=== PATIENT | female | born 1990 | race African-American/Black ===

== ENCOUNTER 2021-03-11 18:38 | Emergency (ER) | payer SELFPAY ==
[2021-03-11] MEDS ORDERED: Acetaminophen 500 MG TAB ONE (19:18)
[2021-03-11] MEDS ORDERED: Ketorolac Tromethamine 30 MG/ML VIAL ONE (19:18)
[2021-03-11 19:40] LABS: BHCG - Serum Negative (NEGATIVE); Pregs Control Background? CLEAR/WHITE (CLR/WHITE); Pregs Control Bar Appear? YES (CONTROL BAR)
[2021-03-12 21:54] LABS: SARS-CoV-2 PCR by NAA Not Detected (NotDetected)
== END 2021-03-11 20:12 | disposition home or self-care (01) ==
LOC: CSHERS 18:38
DX: R51.9 Headache, unspecified (principal); M79.10 Myalgia, unspecified site; I10 Essential (primary) hypertension; Z20.822 Contact with and (suspected) exposure to COVID-19; F17.200 Nicotine dependence, unspecified, uncomplicated
CPT/HCPCS: 36415; 84703; 96372; 99284; J1885; U0003; U0005

== ENCOUNTER 2022-03-13 11:55 | Emergency (ER) | payer SELFPAY ==
[2022-03-13] MEDS ORDERED: Ketorolac Tromethamine 30 MG/ML VIAL ONE (12:06)
== END 2022-03-13 12:16 | disposition home or self-care (01) ==
LOC: CSHERS 11:55
DX: K02.9 Dental caries, unspecified (principal); Z87.891 Personal history of nicotine dependence
CPT/HCPCS: 96372; 99283; J1885

== ENCOUNTER 2022-04-15 10:49 | Emergency (ER) | payer SELFPAY | END 2022-04-15 11:12 | disposition left against medical advice (07) | LOC: CSHERS 10:49 | DX: Z53.21 Procedure and treatment not carried out due to patient leaving prior to being seen by health care provider (principal) ==

== ENCOUNTER 2022-10-26 15:04 | Emergency (ER) | payer SELFPAY | END 2022-10-26 16:10 | disposition home or self-care (01) | LOC: CSHERS 15:04 | DX: S90.412A Abrasion, left great toe, initial encounter (principal); F17.210 Nicotine dependence, cigarettes, uncomplicated; I10 Essential (primary) hypertension; W26.9XXA Contact with unspecified sharp object(s), initial encounter ==

== ENCOUNTER 2023-09-17 10:28 | Emergency (ER) | payer SELFPAY ==
[2023-09-17] MEDS ORDERED: Prochlorperazine 10 MG/2 ML VIAL ONE (11:04)
[2023-09-17] MEDS ORDERED: diphenhydrAMINE 50 MG/ML VIAL ONE (11:04)
[2023-09-17] MEDS ORDERED: Acetaminophen 500 MG TAB ONE (11:05)
[2023-09-17 11:31] LABS: BHCG - Serum Negative (NEGATIVE); Pregs Control Background? CLEAR/WHITE (CLR/WHITE); Pregs Control Bar Appear? YES (CONTROL BAR)
[2023-09-17 11:36] LABS: ALT (SGPT) 11 U/L (8-55); AST (SGOT) 19 U/L (5-34); Albumin 3.9 g/dL (3.5-5.0); Alkaline Phosphatase 79 U/L (40-110); Anion Gap 13 mmol/L (10-20); BUN (Urea Nitrogen) 11 mg/dL (7.0-18.7); Bilirubin, Total 0.3 mg/dL (0.2-1.2); Calc. Creatinine Clearance 0 mL/min (70-130); Calcium 9.8 mg/dL (7.8-10.44); Carbon Dioxide 26 mmol/L (22-29); Chloride 103 mmol/L (98-107); Estimated GFR 101; Globulin 3.8 g/dL (2.4-3.5); Glucose 107 mg/dL (70-105); Magnesium 1.9 mg/dL (1.6-2.6); Potassium 4.5 mmol/L (3.5-5.1); Protein, Total 7.7 g/dL (6.0-8.3); Sodium 137 mmol/L (136-145)
[2023-09-17 11:44] LABS: #Basophils 0.03 10x3/uL (0.0-0.2); #Eosinphils 0.02 10x3/uL (0.0-0.5); #Monocytes 0.82 10x3/uL (0.0-1.1); #Neutrophils 7.81 10x3/uL (1.5-8.4); %Basophils 0.3 % (0.0-2.0); %Eosinophils 0.2 % (0.0-6.0); %Lymphocytes 18.9 % (18.0-47.0); %Monocytes 7.6 % (0.0-10.0); %Neutrophils 72.9 % (40.0-75.0); Hematocrit 34.8 % (34.9-44.5); Hemoglobin 11.9 g/dL (12.0-15.5); Mean Corpuscular HGB CONC 34.2 g/dL (32.0-36.0); Mean Corpuscular Hemoglobin 29.7 pg (27.0-33.0); Mean Corpuscular Volume 86.8 fL (81.6-98.3); Platelet Count 254 10x3/uL (150-450); Red Blood Cell (RBC) Count 4.01 10x6/uL (3.90-5.03); White Blood Cell (WBC) Count 10.7 10x3/uL (3.5-10.5)
[2023-09-17] MEDS ORDERED: Iopamidol 370 76% 100 ML VIAL ONE (12:52)
== END 2023-09-17 13:30 | disposition home or self-care (01) ==
LOC: CSHERS 10:28
DX: G43.909 Migraine, unspecified, not intractable, without status migrainosus (principal); F17.210 Nicotine dependence, cigarettes, uncomplicated; I10 Essential (primary) hypertension; Z55.0 Illiteracy and low-level literacy
CPT/HCPCS: 36415; 70496; 80053; 83735; 84703; 85025; 96374; 96375; J0780; J1200; Q9967

== ENCOUNTER 2024-01-22 08:02 | Emergency (ER) | payer SELFPAY ==
[2024-01-22] MEDS ORDERED: Bacitracin 1 PK ONE (08:39)
== END 2024-01-22 08:47 | disposition home or self-care (01) ==
LOC: CSHERS 08:02
DX: S90.221A Contusion of right lesser toe(s) with damage to nail, initial encounter (principal); L08.9 Local infection of the skin and subcutaneous tissue, unspecified; I10 Essential (primary) hypertension; F17.210 Nicotine dependence, cigarettes, uncomplicated; W22.8XXA Striking against or struck by other objects, initial encounter
CPT/HCPCS: 99283